=== PATIENT | female | born 2000 | race Caucasian/White ===

== ENCOUNTER 2021-05-24 11:10 | Emergency (ER) | payer OTHER, SELFPAY ==
[2021-05-24 12:00] VITALS: BP 138/75; PULSE 82; RESP 14; TEMP 36.4; O2SAT 99
--- NOTE | 2021-05-24 13:11 | ED.GENADULT ---
HPI - General Adult General Chief complaint: Skin/Abscess/Foreign Body Stated complaint: rash, cellulitis Time Seen by Provider: 05/24/21 12:41 Source: patient Mode of arrival: ambulatory Limitations: no limitations History of Present Illness HPI narrative: Patient presents for evaluation of pruritic rash to her entire body. She states she presented to [facility] two days ago with complaints of pain, redness, swelling posterior aspect of the right thigh that started after she was bit by an insect. She states she was diagnosed with cellulitis and was prescribed clindamycin. She developed a pruritic rash to her entire body shortly thereafter. She denies any difficulty breathing or swallowing. Redness, swelling, pain all markedly improved the posterior aspect of the right thigh. She denies any new lotions, soaps, detergents, topical products. She felt feverish last night. She has no additional complaints or concerns. States there is no chance of . Related Data Allergies Allergy/AdvReac Type Severity Reaction Status Date / Time No Known Allergies Allergy Verified 05/24/21 12:01 Review of Systems Review of Systems: CONSTITUTIONAL: Denies fever, chills, or sweats. EYES: Denies visual changes, redness, or discharge. ENT: Denies rhinorrhea, congestion, sore throat, or otalgia. CARDIOVASCULAR: Denies chest pain, palpitations, or edema. RESPIRATORY: Denies cough or dyspnea. GASTROINTESTINAL: Denies abdominal pain, nausea, vomiting, or diarrhea. GENITOURINARY: Denies dysuria or hematuria. SKIN: Reports pruritic rash to entire body MUSCULOSKELETAL: Denies back pain, joint pain, or myalgia. NEUROLOGIC: Denies headache, numbness, dizziness, or weakness. PSYCHIATRIC: Denies anxiety or depression. [facility] Past Medical History Medical History Endometriosis Surgical History Surgical History No pertinent past surgical history Family History Family History Mother No pertinent past medical history Social History Social History Smoking status: Never smoker Substance use: never Gender identity (if verbalized by the patient): Female Spiritual care concerns: No Exam Narrative: GENERAL: Well-appearing, well-nourished, and in no acute distress. HEAD: Normocephalic, atraumatic. EYES: PERRLA and EOMI. ENT: Nares clear, no rhinorrhea or epistaxis. Mucous membranes moist. Oropharynx without tonsillar hypertrophy exudate or other lesions. Bilateral TMs pearly crawford nonbulging NECK: Supple. No adenopathy or masses. No carotid bruits or JVD CHEST: Clear to auscultation. No respiratory distress. No wheezes rales or rhonchi HEART: Regular rate and rhythm. No murmur heard. Normal peripheral pulses. ABDOMEN: Soft, nontender, nondistended, normal active bowel sounds. EXTREMITIES: Normal range of motion. No edema. SKIN: Pinpoint macular rash to torso, extremities x4, neck NEURO: No focal deficits. Alert and oriented x3. PSYCH: Normal mood and affect. Course Course Emergency Course: This is a 20-year-old female who presented with a rash consistent with hives following administration of clindamycin. On physical exam it appears that cellulitis has resolved. She has no angioedema, no airway impairment. She was given Solu-Medrol in the emergency department. Will discharge with prednisone and Benadryl. Although she has no symptoms consistent with cellulitis at the present, we will provide her with a standing prescription for antibiotics, Bactrim and Keflex, in the event that she has recurrence of her symptoms. She should follow-up outpatient for further evaluation and treatment return for worsening symptoms. Patient agreed with plan of care Vital Signs Vital signs: Vital
[2021-05-24] MEDS: methylPREDNISolone SOD SUCC 125 MG VIAL IM (14:01)
[2021-05-24 14:11] VITALS: BP 110/72; PULSE 72; RESP 18; O2SAT 99
== END 2021-05-24 14:14 | disposition home or self-care (01) ==
LOC: ANHED 13:15
PROVIDERS: Emergency Provider Nurse Practitioner
DX: R21 Rash and other nonspecific skin eruption (principal); T36.8X5A Adverse effect of other systemic antibiotics, initial encounter
CPT/HCPCS: 96372; 99283; J2930

== ENCOUNTER 2021-05-30 15:52 | Emergency (ER) | payer OTHER, SELFPAY ==
--- NOTE | ~2021-05-30 | CT_ITS ---
EXAMINATION: CT abdomen pelvis wo con DATE: 05/30/2021 18:59 INDICATION: Right flank pain for 3 days. Nausea. TECHNIQUE: Computed tomography (CT) of the abdomen and pelvis was performed without intravenous contr ast. Automated exposure control and iterative reconstruction technique were employed. Exam dose: 240 .86 mGy-cm total exam DLP. COMPARISON: None. FINDINGS: The lung bases are clear of infiltrate or consolidation. Normal heart size. No pericardial or pleural effusion. The liver, spleen, pancreas, and adrenal glands and kidneys are unremarkable. No urinary tract calcul us or hydroureteronephrosis is evident. Normal caliber of the abdominal aorta. No intraperitoneal or retroperitoneal or pelvic mass lesion or adenopathy or ascites. Normal appendix. No bowel obstruction, bowel wall thickening, pneumatosis or intraperitoneal free air is detected. Retroverted uterus. The urinary bladder is unremarkable. Small fat-containing umbilical hernia. Included skeletal structures are unremarkable. IMPRESSION: No urinary tract calculus or hydroureteronephrosis. Normal appendix Reviewed, dictated and finalized at [facility]. Reviewed, dictated and finalized at [facility].
[2021-05-30 15:59] VITALS: BP 114/67; PULSE 71; RESP 18; TEMP 36.5; O2SAT 100
[2021-05-30 16:25] LABS: Basophils Percent Auto 0.2 % (0.2-1.2); Eosinophils Absolute Auto 0.1 K/mm3 (0-0.3); Eosinophils Percent Auto 0.4 % (0-4.4); Hematocrit 40.3 % (37.0-47.0); Immature Granulocyte Absolute 0.05 K/mm3 (0.00-0.031); Immature Granulocyte Percent A 0.4 % (0-0.5); Lymphocytes Absolute Auto 4.75 K/mm3 (0.9-3.2); Lymphocytes Percent Auto 41.8 % (18.3-44.2); Mean Corpuscular HGB Conc 32.3 g/dl (32-36); Mean Corpuscular Hemoglobin 28.2 pg (26-34); Mean Corpuscular Volume 87.4 fl (80-100); Monocytes Absolute Auto 0.8 K/mm3 (0.1-0.6); Monocytes Percent Auto 6.9 % (2.6-8.5); Neutrophils Absolute Auto 5.7 K/mm3 (1.3-6.7); Neutrophils Percent Auto 50.3 % (45.5-73.1); Platelet Count Result 293 k/mm3 (150-375); Red Blood Count 4.61 M/mm3 (4.2-5.4); Red Cell Distribution Width 13.3 % (11.5-14.5); White Blood Count 11.4 K/mm3 (4.5-10.0)
[2021-05-30 16:44] LABS: Anion Gap 13 mmol/L (8-16); Blood Urea Nitrogen 20 mg/dL (7-17); Calcium 9.2 mg/dL (8.4-10.2); Carbon Dioxide 21 mmol/L (22-30); Chloride 104 mmol/L (98-107); Estimated CRCL calculation 100 ml/min; Estimated Glomerular Filt Rate > 60; Glucose 90 mg/dL (65-110); Potassium 3.8 mmol/L (3.4-5.0); Sodium 138 mmol/L (137-145)
[2021-05-30 17:12] LABS: Add Urine Microscopic? NO; Appearance Urine Clear (Clear); Bilirubin Urine Negative (Negative); Blood Urine Negative (Negative); Color Urine Yellow (Yellow); Glucose Urine UA Negative (Negative); Ketones Urine Negative (Negative); Leukocyte Esterase Ur Negative LEU/UL (Negative); Nitrate Urine Negative (Negative); Protein Urine Negative (Negative); Specific Grav Ur 1.016 (1.001-1.035); Urobilinogen Urine Negative mg/dL (<2.0)
[2021-05-30 19:07] VITALS: BP 123/61; PULSE 68; RESP 15; O2SAT 100
--- NOTE | 2021-05-30 19:46 | ED.GENADULT ---
HPI - General Adult General Chief complaint: Back Pain/Injury Stated complaint: r/o kidney stone Time Seen by Provider: 05/30/21 16:51 Source: patient Mode of arrival: ambulatory Limitations: no limitations History of Present Illness HPI narrative: 20-year-old with no major medical problems here with complaints of flank pain abdominal pain started few days ago. She states that she was seen at urgent care and was later referred here for further evaluation. Patient states that she was diagnosed with UTI and is presently taking Keflex. She denies any fever or chills no history of nausea or vomiting. No previous history of back pain. Onset (ago): day(s) (2) Location: abdomen Radiation: back Severity: moderate Quality: aching Pain Consistency: intermittent Relieving factors: none Exacerbating factors: none Associated symptoms: denies other symptoms Related Data Allergies Allergy/AdvReac Type Severity Reaction Status Date / Time clindamycin Allergy Rash Verified 05/30/21 17:10 Review of Systems Review of Systems: All systems reviewed & are unremarkable except as noted in HPI and below Constitutional: Constitutional: Reports no additional constitutional complaints Eyes: Eyes: Reports no additional eye complaints ENT: Reports system reviewed and no additional complaints, except as documented Cardiovascular: Cardiovascular: Reports no additional cardiovascular complaints Respiratory: Respiratory: Reports no additional respiratory complaints Gastrointestinal: Gastrointestinal: Reports as per HPI Genitourinary: Genitourinary: Reports no additional female genitourinary complaints Musculoskeletal: Musculoskeletal: Reports no additional musculoskeletal complaints Integumentary/Breasts: Skin/Breast: Reports system reviewed and no additional complaints, except as docu Neurologic: Reports system reviewed and no additional complaints, except as documented PMFSH Past Medical History Medical History Endometriosis Surgical History Surgical History No pertinent past surgical history Family History Family History Mother No pertinent past medical history Social History Social History Smoking status: Never smoker Substance use: never Gender identity (if verbalized by the patient): Female Spiritual care concerns: No Exam Narrative: GENERAL: Well-appearing, well-nourished, and in no acute distress. HEAD: Normocephalic, atraumatic. EYES: PERRLA and EOMI. ENT: Nares clear, no rhinorrhea or epistaxis. Mucous membranes moist. NECK: Supple. CHEST: Clear to auscultation. No respiratory distress. HEART: Regular rate and rhythm. No murmur heard. Normal peripheral pulses. ABDOMEN: Soft, nontender, nondistended, normal active bowel sounds. EXTREMITIES: Normal range of motion. No edema. SKIN: Warm, dry, no rash. NEURO: No focal deficits. Alert and oriented x3. PSYCH: Normal mood and affect. Course Course Emergency Course: Inform patient about her lab work, CT findings her pain is pretty nonspecific at this time. Advised her to finish the course of Keflex for UTI. Take Tylenol ibuprofen for pain. Vital Signs Vital signs: Vital Signs Temperature 36.5 C 05/30/21 15:59 Pulse Rate 71 05/30/21 15:59 Respiratory Rate 18 05/30/21 15:59 Blood Pressure 114/67 05/30/21 15:59 Pulse Oximetry 100 05/30/21 15:59 Temperature 36.5 C 05/30/21 15:59 Pulse Rate 68 05/30/21 19:07 Respiratory Rate 15 05/30/21 19:07 Blood Pressure 123/61 05/30/21 19:07 Pulse Oximetry 100 05/30/21 19:07 Medical Decision Making Vital Signs Vital Signs: Vital Signs Temperature 36.5 C 05/30/21 15:59 Pulse Rate 71 05/30/21 15:59 Respiratory Rate 18 05/30/21 15:59 Blood Pressure 114/67 09
[2021-05-30 19:57] VITALS: BP 120/60; PULSE 68; RESP 16; O2SAT 99
== END 2021-05-30 19:58 | disposition home or self-care (01) ==
PROVIDERS: Emergency Medicine; Emergency Provider Family Medicine
DX: R10.9 Unspecified abdominal pain (principal); Z87.42 Personal history of other diseases of the female genital tract
CPT/HCPCS: 36415; 74176; 80048; 81003; 81025; 85025; 99284

== ENCOUNTER 2021-10-08 03:13 | Emergency (ER) | payer OTHER, SELFPAY ==
--- NOTE | ~2021-10-08 | CT_ITS ---
EXAMINATION: CT abdomen pelvis w con DATE: 10/08/2021 05:56 INDICATION: Low abdominal pain, polyuria, dysuria TECHNIQUE: Computed tomography (CT) of the abdomen and pelvis was performed with 100 cc Omnipaque 350 intravenous contrast. Automated exposure control and iterative reconstruction technique were employe d. Exam dose: 431.64 mGy-cm total exam DLP. COMPARISON: 05/30/2021 CT abdomen pelvis FINDINGS: The lung bases are clear. Normal heart size. No pericardial or pleural effusion. The liver, gallbladder, bile ducts, spleen, pancreas, pancreatic duct, and adrenal glands and kidneys appear normal. Normal caliber of the abdominal aorta. No intraperitoneal or retroperitoneal or pelvi c mass lesion or adenopathy or ascites. Retroverted uterus. The adnexal areas and evacuated urinary bladder are unremarkable. Included skeletal structures are unremarkable. IMPRESSION: Retroverted uterus Reviewed, dictated and finalized at [facility]. Reviewed, dictated and finalized at [facility]. GN AGENT IMPRESSION: Retroverted uterus
[2021-10-08 03:18] VITALS: BP 125/72; PULSE 72; RESP 16; TEMP 36.2; O2SAT 100
[2021-10-08 03:50] LABS: Add Urine Microscopic? YES; Appearance Urine Clear (Clear); Bilirubin Urine Negative (Negative); Blood Urine 1+ (Negative); Color Urine Straw (Yellow); Glucose Urine UA Negative (Negative); Ketones Urine Trace mg/dL (Negative); Leukocyte Esterase Ur Negative LEU/UL (Negative); Mucus Urine Rare /lpf; Nitrate Urine Negative (Negative); Protein Urine Negative (Negative); RBC Urine 0-2 /hpf (0-2); Squamous Epithelial Cell Urine Rare /hpf (Few); Urobilinogen Urine Negative mg/dL (<2.0); WBC Urine 0-3 /hpf
[2021-10-08] MEDS: KETOROLAC 30 MG/ML VIAL (*BKC) IV PUSH (04:23)
[2021-10-08 04:26] LABS: Basophils Percent Auto 0.2 % (0.2-1.2); Eosinophils Percent Auto 0.3 % (0-4.4); Hematocrit 38.5 % (37.0-47.0); Immature Granulocyte Absolute 0.01 K/mm3 (0.00-0.031); Immature Granulocyte Percent A 0.2 % (0-0.5); Lymphocytes Absolute Auto 2.53 K/mm3 (0.9-3.2); Lymphocytes Percent Auto 38.2 % (18.3-44.2); Mean Corpuscular HGB Conc 33.8 g/dl (32-36); Mean Corpuscular Hemoglobin 28.3 pg (26-34); Mean Corpuscular Volume 83.9 fl (80-100); Mean Platelet Volume 10.1 fl (7.4-10.4); Monocytes Absolute Auto 0.5 K/mm3 (0.1-0.6); Monocytes Percent Auto 7.6 % (2.6-8.5); Neutrophils Absolute Auto 3.6 K/mm3 (1.3-6.7); Neutrophils Percent Auto 53.5 % (45.5-73.1); Platelet Count Result 237 k/mm3 (150-375); Red Blood Count 4.59 M/mm3 (4.2-5.4); Red Cell Distribution Width 12.7 % (11.5-14.5); White Blood Count 6.6 K/mm3 (4.5-10.0)
[2021-10-08 05:07] VITALS: BP 124/66; PULSE 69; RESP 17; O2SAT 98
[2021-10-08 05:30] LABS: Alanine Aminotransferase 14 U/L (4-35); Albumin Level 4.5 g/dL (3.5-5.1); Alkaline Phosphatase 50 U/L (38-126); Anion Gap 8 mmol/L (8-16); Aspartate Amino Transferase 22 U/L (14-36); Bilirubin,Total 0.7 mg/dL (0.2-1.3); Blood Urea Nitrogen 10 mg/dL (7-17); Calcium 9.2 mg/dL (8.4-10.2); Carbon Dioxide 22 mmol/L (22-30); Chloride 106 mmol/L (98-107); Estimated CRCL calculation 107 ml/min; Estimated Glomerular Filt Rate > 60; Glucose 82 mg/dL (65-110); Potassium 3.9 mmol/L (3.4-5.0); Sodium 136 mmol/L (137-145)
--- NOTE | 2021-10-08 05:43 | PC.NURSE ---
Patient taken to CT.
--- NOTE | 2021-10-08 06:16 | ED.GENADULT ---
HPI - General Adult General Chief complaint: Urogenital-Female Stated complaint: uti symptoms Time Seen by Provider: 10/08/21 03:30 Source: RN notes reviewed History of Present Illness HPI narrative: Patient presents emergency department from home for lower abdominal pain. Patient states that she has been having dysuria as well as pain in the lower mid abdomen pain is described as cramping in nature and radiates into the bilateral lower abdomen she states that she was seen by her PCP 3 days ago and was started on Cipro which she took for 3 days with her last dose on the she states that again today she had had dysuria and lower abdominal pain and came for further evaluation she has any fevers or chills nausea vomiting or any other symptoms Related Data Home Medications Medication Instructions Recorded Confirmed levonorgestrel-ethinyl estrad tablet 10/08/21 [Vienva] topiramate 10/08/21 Allergies Allergy/AdvReac Type Severity Reaction Status Date / Time clindamycin Allergy Rash Verified 10/08/21 03:38 Review of Systems Review of Systems: Gen.: Denies fevers or chills Respiratory: Denies shortness of breath or cough CV: Denies chest pain or palpitations GI: Reports lower abdominal pain denies nausea vomiting or diarrhea reports dysuria Musculoskeletal: Denies back pain or muscle pain Neuro: Denies numbness, tingling, weakness or focal weakness Skin: Denies rash Except as documented, all other systems reviewed and negative [facility] Past Medical History Medical History Endometriosis Surgical History Surgical History No pertinent past surgical history Family History Family History Mother No pertinent past medical history Social History Social History Smoking status: Never smoker Substance use: never Gender identity (if verbalized by the patient): Female Spiritual care concerns: No Exam Narrative: APPEARANCE: No acute distress, nontoxic, resting in bed HEENT: Normocephalic, atraumatic, OMM RESPIRATORY: No respiratory distress, clear to auscultation bilaterally with no rhonchi wheezing or rales CARDIOVASCULAR: RRR s murmur ABDOMINAL: Soft nondistended tender to palpation right lower quadrant left lower quadrant no tenderness right upper quadrant left lower quadrant no rebound or guarding MUSCULOSKELETAl: Moves all extremities. No clubbing, cyanosis or edema. NEURO: Awake and alert. Following commands, speech normal, no focal deficits SKIN:: Warm, dry. Normal Color PSYCHIATRIC: Normal affect/mood Course Course Emergency Course: Patient with UA showing no definitive acute infection with small amount of blood and lower abdominal pain will obtain CT scan to rule out kidney stone Patient CT results states she had diarrhea on Sunday but is had no bowel movement since then we will give mag citrate for possible constipation Patient states that they are feeling much better at this time. States abdominal pain has resolved. Repeat abdominal exam shows the patient's abdomen to be soft and nontender. Discussed with patient results of workup and diagnosis. Discussed need for follow-up with primary care physician, reasons to return to the emergency department in proper use of medication. Patient understands and agrees to current treatment plan Vital Signs Vital signs: Vital Signs Temperature 97.1 F L 10/08/21 03:18 Pulse Rate 72 10/08/21 03:18 Respiratory Rate 16 10/08/21 03:18 Blood Pressure 125/72 10/08/21 03:18 Pulse Oximetry 100 10/08/21 03:18 Temperature 97.1 F L 10/08/21 03:18 Pulse Rate 69 10/08/21 05:07 Respiratory Rate 17 10/08/21 05:07 Blood Pressure 124/66 10/08/21 05:07 Pulse Oximetry 98 10/08/21 05:07 Medical Decision Making WOOD Mojica
[2021-10-08] MEDS: NITROFURANTOIN MONOHYD MACROCR 100 MG CAP PO (06:32)
[2021-10-08 06:36] VITALS: BP 125/79; PULSE 85; RESP 17; O2SAT 100
== END 2021-10-08 06:37 | disposition home or self-care (01) ==
PROVIDERS: Emergency Provider Emergency Medicine
DX: R10.32 Left lower quadrant pain (principal); R10.31 Right lower quadrant pain; R30.0 Dysuria; N80.9 Endometriosis, unspecified
CPT/HCPCS: 36415; 74177; 80053; 81001; 81025; 85025; 96374; 99284; A9270; J1885; Q9967

== ENCOUNTER 2021-10-10 06:42 | Emergency (ER) | payer OTHER, SELFPAY ==
[2021-10-10] VITALS (7 sets, daily range): BP systolic 96–102; BP diastolic 50–79; PULSE 66–89; RESP 12–21; TEMP 36.7; O2SAT 99–100
[2021-10-10 07:02] LABS: Basophils Percent Auto 0.1 % (0.2-1.2); Eosinophils Percent Auto 0.6 % (0-4.4); Hematocrit 37.1 % (37.0-47.0); Hemoglobin 12.3 g/dL (12.0-15.0); Immature Granulocyte Absolute 0.01 K/mm3 (0.00-0.031); Immature Granulocyte Percent A 0.1 % (0-0.5); Lymphocytes Absolute Auto 1.47 K/mm3 (0.9-3.2); Lymphocytes Percent Auto 21.4 % (18.3-44.2); Mean Corpuscular HGB Conc 33.2 g/dl (32-36); Mean Corpuscular Hemoglobin 28.7 pg (26-34); Mean Corpuscular Volume 86.5 fl (80-100); Mean Platelet Volume 10.3 fl (7.4-10.4); Monocytes Absolute Auto 0.5 K/mm3 (0.1-0.6); Monocytes Percent Auto 6.7 % (2.6-8.5); Neutrophils Absolute Auto 4.9 K/mm3 (1.3-6.7); Neutrophils Percent Auto 71.1 % (45.5-73.1); Platelet Count Result 223 k/mm3 (150-375); Red Blood Count 4.29 M/mm3 (4.2-5.4); White Blood Count 6.9 K/mm3 (4.5-10.0)
--- NOTE | 2021-10-10 07:08 | ECG_ITS ---
Measurements Intervals [place] Rate: 73 P: 17 MA: 154 QRS: 34 QRSD: 96 T: 41 QT: 385 QTc: 427 Interpretive Statements SINUS RHYTHM MINIMAL Q WAVES- HIGH LATERAL LEADS BORDERLINE ECG Electronically Signed On 10-10-2021 8:00:41 [employer] by Luke Lopez D.O.
[2021-10-10 07:18] LABS: Alanine Aminotransferase 15 U/L (4-35); Albumin Level 4.4 g/dL (3.5-5.1); Alkaline Phosphatase 49 U/L (38-126); Anion Gap 11 mmol/L (8-16); Aspartate Amino Transferase 21 U/L (14-36); Bilirubin,Total 0.6 mg/dL (0.2-1.3); Blood Urea Nitrogen 10 mg/dL (7-17); Calcium 9.1 mg/dL (8.4-10.2); Carbon Dioxide 21 mmol/L (22-30); Chloride 105 mmol/L (98-107); Estimated CRCL calculation 107 ml/min; Estimated Glomerular Filt Rate > 60; Glucose 101 mg/dL (65-110); Lipase 130 U/L (23-300); Potassium 4.1 mmol/L (3.4-5.0); Sodium 137 mmol/L (137-145)
[2021-10-10] MEDS: SODIUM CHLORIDE 0.9% IV 1,000 ML 999 ML IV CONT (07:21)
[2021-10-10] MEDS: METOCLOPRAMIDE HCL INJ 10 MG/2 ML VIAL IV PUSH (07:32)
--- NOTE | 2021-10-10 07:49 | ED.GENADULT ---
HPI - General Adult General Chief complaint: Nausea/Vomiting/Diarrhea Stated complaint: N/V/D Time Seen by Provider: 10/10/21 07:07 Source: patient History of Present Illness HPI narrative: Patient is a 21 y/o female complaining of syncopal episode this morning around 4:30 AM. She states that she was having vomiting and diarrhea last night. She vomiting about 4-5 times, mostly food material. She states that she was on the floor vomiting and her father noticed that she was unresponsive for a few seconds. Related Data Home Medications Medication Instructions Recorded Confirmed levonorgestrel-ethinyl estrad tablet 10/08/21 [Vienva] topiramate 10/08/21 Allergies Allergy/AdvReac Type Severity Reaction Status Date / Time clindamycin Allergy Rash Verified 10/08/21 03:38 Review of Systems Constitutional: Constitutional: Denies chills, Denies fever(s), Denies headache(s) and Denies weakness Eyes: Eyes: Denies blurry vision ENT: Denies headache(s) and Denies neck pain Cardiovascular: Cardiovascular: Denies chest pain and Denies dyspnea Respiratory: Respiratory: Denies cough and Denies dyspnea Gastrointestinal: Gastrointestinal: Denies abdominal pain, Reports diarrhea, Reports nausea and Reports vomiting Genitourinary: Genitourinary: Denies hematuria and Denies dysuria Musculoskeletal: Musculoskeletal: Denies back pain and Denies neck pain Neurologic: Reports syncope, Denies headache(s) and Denies weakness PMFSH Past Medical History Medical History Endometriosis Surgical History Surgical History No pertinent past surgical history Family History Family History Mother No pertinent past medical history Social History Social History Smoking status: Never smoker Substance use: never Gender identity (if verbalized by the patient): Female Spiritual care concerns: No Exam Const: General: no acute distress and well developed Orientation/consciousness: oriented to person, oriented to place, oriented to time and patient oriented x3 HENMT: Head: normocephalic Ears: external ears normal General nose exam: Normal external nose present Eyes: General: appearance normal, both eyes and all related structures Conjunctivae: conjunctivae normal Neck: Neck: normal visual inspection and full ROM Chest: Chest palpation & inspection: normal inspection of the chest and no tenderness Resp: Effort & Inspection: normal respiratory effort Auscultation: clear to auscultation bilaterally Cardio: Rate: regular rate Rhythm: regular rhythm GI: GI Palp: No abdominal tenderness and Yes Soft to palpation Skin: General skin exam: normal color and turgor normal Neuro: General: oriented to person, oriented to place, oriented to time and patient oriented x3 Cognition (Neuro): normal cognition Speech: normal speech Motor exam (neuro): 5/5 motor strength present throughout Sensory Exam: normal sensation Extrem: General: normal to inspection, full ROM and no pedal edema Psych: Appearance: grossly normal Mental Status: mental status grossly normal Affect: normal affect Course Vital Signs Vital signs: Vital Signs Temperature 36.7 C 10/10/21 06:48 Pulse Rate 80 10/10/21 06:48 Respiratory Rate 18 10/10/21 06:48 Blood Pressure 96/79 L 10/10/21 06:48 Pulse Oximetry 99 10/10/21 06:48 Temperature 36.7 C 10/10/21 06:48 Pulse Rate 80 10/10/21 08:49 Respiratory Rate 18 10/10/21 08:49 Blood Pressure 101/65 10/10/21 08:49 Pulse Oximetry 100 10/10/21 08:49 Medical Decision Making Vital Signs Vital Signs: Vital Signs Temperature 36.7 C 10/10/21 06:48 Pulse Rate 80 10/10/21 06:48 Respiratory Rate 18 10/10/21 06:48 Blood Pressure 96/79 L 10/10/21 06:
[2021-10-10 07:55] LABS: Add Urine Microscopic? YES; Appearance Urine Clear (Clear); Bilirubin Urine Negative (Negative); Blood Urine 1+ (Negative); Color Urine Amber (Yellow); Glucose Urine UA Negative (Negative); Ketones Urine 2+ mg/dL (Negative); Leukocyte Esterase Ur Negative LEU/UL (Negative); Mucus Urine Rare /lpf; Nitrate Urine Negative (Negative); Protein Urine Negative (Negative); RBC Urine 0-2 /hpf (0-2); Specific Grav Ur 1.026 (1.001-1.035); Squamous Epithelial Cell Urine Occasional /hpf (Few); Urobilinogen Urine Negative mg/dL (<2.0); WBC Urine 0-3 /hpf
--- NOTE | 2021-10-10 08:56 | PC.NURSE ---
pt able to keep water down without any nausea or vomiting.
== END 2021-10-10 09:04 | disposition home or self-care (01) ==
PROVIDERS: Emergency Medicine; Emergency Provider Emergency Medicine
DX: R55 Syncope and collapse (principal); E86.0 Dehydration; N80.9 Endometriosis, unspecified; R94.31 Abnormal electrocardiogram [ECG] [EKG]
CPT/HCPCS: 36415; 80053; 81001; 81025; 83690; 85025; 93005; 96361; 96374; 99284; J2765; J7030

== ENCOUNTER 2022-09-09 14:25 | Emergency (ER) | payer OTHER, SELFPAY ==
[2022-09-09 14:30] VITALS: BP 136/81; PULSE 98; RESP 18; TEMP 36.6; O2SAT 98
[2022-09-09 15:15] LABS: Hematocrit 41.9 % (37.0-47.0); Immature Platelet Fraction Pct 7.1 % (0.9-11.2); Mean Corpuscular HGB Conc 33.4 g/dl (32-36); Mean Corpuscular Hemoglobin 29.4 pg (26-34); Mean Corpuscular Volume 87.8 fl (80-100); Platelet Count Result 240 k/mm3 (150-375); Red Blood Count 4.77 M/mm3 (4.2-5.4); Red Cell Distribution Width 12.9 % (11.5-14.5)
[2022-09-09 15:16] LABS: Basophils Percent Auto 0.3 % (0.2-1.2); Eosinophils Absolute Auto 0.2 K/mm3 (0-0.3); Eosinophils Percent Auto 2.5 % (0-4.4); Immature Granulocyte Absolute 0.02 K/mm3 (0.00-0.031); Immature Granulocyte Percent A 0.3 % (0-0.5); Lymphocytes Absolute Auto 2.13 K/mm3 (0.9-3.2); Lymphocytes Percent Auto 35.3 % (18.3-44.2); Mean Platelet Volume 11.4 fl (7.4-10.4); Monocytes Absolute Auto 0.5 K/mm3 (0.1-0.6); Monocytes Percent Auto 7.5 % (2.6-8.5); Neutrophils Absolute Auto 3.3 K/mm3 (1.3-6.7); Neutrophils Percent Auto 54.1 % (45.5-73.1)
[2022-09-09 15:24] LABS: Alanine Aminotransferase 22 U/L (6-35); Albumin Level 5.3 g/dL (3.5-5.1); Alkaline Phosphatase 56 U/L (38-126); Anion Gap 8 mmol/L (8-16); Aspartate Amino Transferase 28 U/L (14-36); Bilirubin,Total 0.7 mg/dL (0.2-1.3); Blood Urea Nitrogen 12 mg/dL (7-17); Calcium 9.4 mg/dL (8.4-10.2); Carbon Dioxide 27 mmol/L (22-30); Chloride 102 mmol/L (98-107); Estimated CRCL calculation 95 ml/min; Estimated Glomerular Filt Rate > 60; Ethanol < 10 mg/dL (<10); Glucose 97 mg/dL (65-110); Potassium 3.9 mmol/L (3.4-5.0); Sodium 137 mmol/L (137-145)
[2022-09-09 15:33] LABS: Add Urine Microscopic? YES; Appearance Urine Clear (Clear); Bilirubin Urine Negative (Negative); Blood Urine Negative (Negative); Color Urine Yellow (Yellow); Glucose Urine UA Negative (Negative); Ketones Urine Trace mg/dL (Negative); Leukocyte Esterase Ur Negative LEU/UL (Negative); Nitrate Urine Negative (Negative); Protein Urine Trace mg/dL (Negative); Urobilinogen Urine 0.2 mg/dL (<2.0); pH Urine 7.5 (5.0-9.0)
[2022-09-09 15:36] LABS: Mucus Urine Rare /lpf; Squamous Epithelial Cell Urine Few /hpf (Few); WBC Urine 0-3 /hpf
[2022-09-09 15:49] LABS: Influenza A QL RT-PCR Negative (Negative); Influenza B QL RT-PCR Negative (Negative); SARS-CoV-2 RNA PCR Negative
--- NOTE | 2022-09-09 15:53 | ED.PSYCH ---
HPI - Psych General Chief Complaint: Psychiatric Symptoms Stated Complaint: SI, w/ PD, picked up from home Time Seen by Provider: 09/09/22 14:41 History of Present Illness HPI Narrative: Patient is a 22-year-old female with a history of depression, anxiety presenting with suicidal ideation. Patient states that she struggled with depression for the last several years. States that she had suicidal ideation in 2019 but she never went through with that. States that she has had a lot of stress lately with school and family problems. States that her family doctor recently started her on Lexapro approximately a week ago. She was doing well until the last several days she has had increased frequency and her suicidal thoughts. States that her family was leaving this weekend to go to [place] and she was going to be home alone so she became concerned for her safety. States that she did not have a plan nor did she make an attempt. She denies hallucinations, homicidal ideation, paranoia. Related Data Home Medications Medication Instructions Recorded Confirmed levonorgestrel-ethinyl estradiol tablet 10/08/21 0.1 mg-20 mcg tablet (Vienva) topiramate 25 mg tablet 10/08/21 Allergies Allergy/AdvReac Type Severity Reaction Status Date / Time clindamycin Allergy Rash Verified 09/09/22 14:30 Review of Systems Review of Systems: All systems reviewed & are unremarkable except as noted in HPI and below PMFSH Past Medical History Medical History Endometriosis Surgical History Surgical History No pertinent past surgical history Family History Family History Mother No pertinent past medical history Social History Social History Smoking status: Never smoker Substance use: never Substance use type: does not use Gender identity (if verbalized by the patient): Female Spiritual care concerns: No Exam Narrative: GENERAL: Well-appearing, well-nourished, and in no acute distress. HEAD: Normocephalic, atraumatic. EYES: PERRLA and EOMI. ENT: Nares clear, no rhinorrhea or epistaxis. Mucous membranes moist. NECK: Supple. CHEST: Clear to auscultation. No respiratory distress. HEART: Regular rate and rhythm. No murmur heard. Normal peripheral pulses. ABDOMEN: Soft, nontender, nondistended, normal active bowel sounds. EXTREMITIES: Normal range of motion. No edema. SKIN: Warm, dry, no rash. NEURO: No focal deficits. Alert and oriented x3. PSYCH: Normal mood and affect. + Suicidal ideation Course Vital Signs Vital signs: Vital Signs Temperature 97.9 F 09/09/22 14:30 Pulse Rate 98 09/09/22 14:30 Respiratory Rate 18 09/09/22 14:30 Blood Pressure 136/81 09/09/22 14:30 Pulse Oximetry 98 09/09/22 14:30 Oxygen Delivery Room Air 09/09/22 14:30 Temperature 97.9 F 09/09/22 14:30 Pulse Rate 86 09/09/22 19:13 Respiratory Rate 16 09/09/22 19:13 Blood Pressure 130/76 09/09/22 19:13 Pulse Oximetry 98 09/09/22 19:13 Oxygen Delivery Room Air 09/09/22 14:30 MDM - Psych MDM Narrative Medical decision making narrative: Patient is a 22-year-old female presenting with increased suicidal thoughts following initiation of Lexapro. Vitals are within normal limits. Exam is remarkable for the above. Blood work is unremarkable. Tox screen is negative. Patient was seen by our crisis team and a safety contract was agreed upon. Patient states that she does feel safe going home. Her mother will remain with her all weekend. Patient states she is no longer having suicidal thoughts. Strict return precautions were given. Advised that she follow closely with psychiatry as well as a therapist. Patient discharged in stable condition. Lab Data 09/09/22 15:07
[2022-09-09 16:50] LABS: Barbiturate Screen Urine Negative (Negative); Benzodiazepines Screen Urine Negative (Negative)
[2022-09-09 16:52] LABS: Cannabinoid Screen Urine Negative (Negative); Cocaine Screen Urine Negative (Negative); Methadone Screen Urine Negative (Negative); Opiate Screen Urine Negative (Negative); Phencyclidine Screen Urine Negative (Negative)
[2022-09-09 16:56] LABS: Amphetamine Screen Urine Negative (Negative)
[2022-09-09 19:13] VITALS: BP 130/76; PULSE 86; RESP 16; O2SAT 98
== END 2022-09-09 18:45 | disposition home or self-care (01) ==
PROVIDERS: Emergency Provider Emergency Medicine
DX: F32.A Depression, unspecified (principal); R45.851 Suicidal ideations; Z20.822 Contact with and (suspected) exposure to COVID-19
CPT/HCPCS: 36415; 80053; 80307; 81001; 81025; 84443; 85025; 85055; 87636; 99283

== ENCOUNTER 2022-11-27 00:26 | Emergency (ER) | payer OTHER, SELFPAY ==
[2022-11-27 00:29] VITALS: BP 166/81; PULSE 89; RESP 16; TEMP 36.2; O2SAT 100
--- NOTE | 2022-11-27 01:09 | ECG_ITS ---
Measurements Intervals [place] Rate: 94 P: 20 AK: 116 QRS: 68 QRSD: 92 T: 53 QT: 328 QTc: 412 Interpretive Statements SINUS RHYTHM WITH SHORT [place] INTERVAL BASELINE ARTIFACT- I, II, III, AVR, AVL BORDERLINE ECG COMPARED TO ECG 10/10/2021 07:27:16 NO SIGNIFICANT CHANGES Electronically Signed On 11-27-2022 6:36:12 CDT by Luke Lopez D.O.
[2022-11-27 01:27] LABS: Basophils Percent Auto 0.3 % (0.2-1.2); Eosinophils Absolute Auto 0.2 K/mm3 (0-0.3); Eosinophils Percent Auto 3.1 % (0-4.4); Hematocrit 39.2 % (37.0-47.0); Hemoglobin 13.1 g/dL (12.0-15.0); Immature Granulocyte Absolute 0.02 K/mm3 (0.00-0.031); Immature Granulocyte Percent A 0.3 % (0-0.5); Lymphocytes Absolute Auto 2.79 K/mm3 (0.9-3.2); Lymphocytes Percent Auto 35.5 % (18.3-44.2); Mean Corpuscular HGB Conc 33.4 g/dl (32-36); Mean Corpuscular Hemoglobin 28.9 pg (26-34); Mean Corpuscular Volume 86.5 fl (80-100); Mean Platelet Volume 9.8 fl (7.4-10.4); Monocytes Absolute Auto 0.6 K/mm3 (0.1-0.6); Monocytes Percent Auto 7.3 % (2.6-8.5); Neutrophils Absolute Auto 4.2 K/mm3 (1.3-6.7); Neutrophils Percent Auto 53.5 % (45.5-73.1); Platelet Count Result 275 k/mm3 (150-375); Red Blood Count 4.53 M/mm3 (4.2-5.4); Red Cell Distribution Width 12.9 % (11.5-14.5); White Blood Count 7.9 K/mm3 (4.5-10.0)
[2022-11-27 01:34] LABS: Appearance Urine Clear (Clear); Bacteria Urine None Seen /hpf; Bilirubin Urine Negative (Negative); Blood Urine Trace (Negative); Color Urine Yellow (Yellow); Glucose Urine UA Negative (Negative); Ketones Urine Negative (Negative); Leukocyte Esterase Ur Negative LEU/UL (Negative); Nitrate Urine Negative (Negative); Non Pathogenic Casts 0-2; Protein Urine Negative (Negative); RBC Urine 0-2 /hpf (0-2); Specific Grav Ur 1.019 (1.001-1.035); Squamous Epithelial Cell Urine None seen /hpf (Few); Urobilinogen Urine 0.2 mg/dL (<2.0); WBC Urine 0-5 /hpf
[2022-11-27 01:42] LABS: Alanine Aminotransferase 28 U/L (6-35); Albumin Level 4.8 g/dL (3.5-5.1); Alkaline Phosphatase 76 U/L (38-126); Anion Gap 8 mmol/L (8-16); Aspartate Amino Transferase 28 U/L (14-36); Bilirubin,Total 0.6 mg/dL (0.2-1.3); Blood Urea Nitrogen 18 mg/dL (7-17); Calcium 9.3 mg/dL (8.4-10.2); Carbon Dioxide 24 mmol/L (22-30); Chloride 106 mmol/L (98-107); Estimated CRCL calculation 106 ml/min; Estimated Glomerular Filt Rate > 60; Glucose 90 mg/dL (65-110); Sodium 138 mmol/L (137-145)
[2022-11-27 01:46] LABS: Acetaminophen < 10 ug/mL (10-30); Ethanol < 10 mg/dL (<10); Salicylate < 1.0 mg/dL (2-20)
[2022-11-27 01:57] LABS: Amphetamine Screen Urine Negative (Negative); Barbiturate Screen Urine Negative (Negative); Benzodiazepines Screen Urine Negative (Negative); Cannabinoid Screen Urine Negative (Negative); Cocaine Screen Urine Negative (Negative); Methadone Screen Urine Negative (Negative); Opiate Screen Urine Negative (Negative); Phencyclidine Screen Urine Negative (Negative)
[2022-11-27 02:04] LABS: Add Urine Microscopic? YES
--- NOTE | 2022-11-27 02:27 | ED.GENADULT ---
HPI - General Adult General Chief complaint: Psychiatric Symptoms Stated complaint: suicidal thoughts Time Seen by Provider: 11/27/22 01:05 History of Present Illness HPI narrative: Patient a 22-year-old female who presents the emergency department with chief complaint of suicidal ideation. Patient reports that she is been a little manic recently and then got depressed and reports that she has been coming down today and has had thoughts of hurting herself. Patient states she did not have a specific plan but reports that she decided come to the emergency department for evaluation. Related Data Home Medications Medication Instructions Recorded Confirmed levonorgestrel-ethinyl estradiol tablet 10/08/21 0.1 mg-20 mcg tablet (Vienva) topiramate 25 mg tablet 10/08/21 Allergies Allergy/AdvReac Type Severity Reaction Status Date / Time clindamycin Allergy Rash Verified 11/27/22 00:26 Review of Systems Review of Systems: A 10 system review of systems was completed on the patient and is negative except for what is stated in the HPI. Nursing and ancillary documentation was reviewed. PMFSH Past Medical History Medical History Endometriosis Surgical History Surgical History No pertinent past surgical history Family History Family History Mother No pertinent past medical history Social History Social History Smoking status: Never smoker Substance use: never Substance use type: marijuana Gender identity (if verbalized by the patient): Female Spiritual care concerns: No Exam Narrative: GENERAL: Well-appearing, well-nourished, and in no acute distress. HEAD: Normocephalic, atraumatic. EYES: PERRLA and EOMI. ENT: Nares clear, no rhinorrhea or epistaxis. Mucous membranes moist. NECK: Supple. CHEST: Clear to auscultation. No respiratory distress. HEART: Regular rate and rhythm. No murmur heard. Normal peripheral pulses. ABDOMEN: Soft, nontender, nondistended, normal active bowel sounds. EXTREMITIES: Normal range of motion. No edema. SKIN: Warm, dry, no rash. NEURO: No focal deficits. Alert and oriented x3. PSYCH: Depressed affect. Course Vital Signs Vital signs: Vital Signs Temperature 36.2 C L 11/27/22 00:29 Pulse Rate 89 11/27/22 00:29 Respiratory Rate 16 11/27/22 00:29 Blood Pressure 166/81 H 11/27/22 00:29 Pulse Oximetry 100 11/27/22 00:29 Oxygen Delivery Room Air 11/27/22 00:29 Temperature 36.2 C L 11/27/22 00:29 Pulse Rate 89 11/27/22 00:29 Respiratory Rate 16 11/27/22 00:29 Blood Pressure 166/81 H 11/27/22 00:29 Pulse Oximetry 100 11/27/22 00:29 Oxygen Delivery Room Air 11/27/22 00:29 Medical Decision Making MDM Narrative Medical decision making narrative: Differential diagnosis includes depression, bipolar disorder, suicidal ideation, homicidal ideation. Laboratory studies were obtained which were within normal limits toxicology studies were negative Patient was medically cleared for psychiatric evaluation referral and transfer Patient was seen by crisis and was cleared for outpatient follow-up with a safety plan Vital Signs Vital Signs: Vital Signs Temperature 36.2 C L 11/27/22 00:29 Pulse Rate 89 11/27/22 00:29 Respiratory Rate 16 11/27/22 00:29 Blood Pressure 166/81 H 11/27/22 00:29 Pulse Oximetry 100 11/27/22 00:29 Oxygen Delivery Room Air 11/27/22 00:29 Temperature 36.2 C L 11/27/22 00:29 Pulse Rate 89 11/27/22 00:29 Respiratory Rate 16 11/27/22 00:29 Blood Pressure 166/81 H 11/27/22 00:29 Pulse Oximetry 100 11/27/22 00:29 Oxygen Delivery Room Air 11/27/22 00:29 Lab Data 11/27/22 01:18 11/27/22 01:18 Loarine
--- NOTE | 2022-11-27 03:02 | PC.NURSE ---
MAGALY denied pt at this time.
[2022-11-27 03:16] LABS: Influenza A QL RT-PCR Negative (Negative); Influenza B QL RT-PCR Negative (Negative); SARS-CoV-2 RNA PCR Negative
--- NOTE | 2022-11-27 04:13 | PC.NURSE ---
Pt c/o headache, EDP notified.
[2022-11-27] MEDS: ACETAMINOPHEN 500 MG TABLET 1000 MG PO (04:16)
== END 2022-11-27 05:30 | disposition home or self-care (01) ==
PROVIDERS: Emergency Provider Emergency Medicine
DX: R45.851 Suicidal ideations (principal); F32.A Depression, unspecified; N80.9 Endometriosis, unspecified; Z79.899 Other long term (current) drug therapy
CPT/HCPCS: 36415; 80053; 80307; 81001; 81025; 84443; 85025; 87636; 93005; 99284; A9270

== ENCOUNTER 2023-10-21 04:01 | Emergency (ER) | payer OTHER, SELFPAY ==
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
[2023-10-21 04:05] VITALS: BP 138/82; PULSE 107; RESP 14; TEMP 36.3; O2SAT 100
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
== END 2023-10-21 09:03 | disposition home or self-care (01) ==
LOC: ANHED 08:58
PROVIDERS: Emergency Provider Emergency Medicine
DX: S09.90XA Unspecified injury of head, initial encounter (principal); Y04.8XXA Assault by other bodily force, initial encounter
CPT/HCPCS: 70450; 99284